=== PATIENT | female | born 1995 | race American Indian/Alaskan Native ===

== ENCOUNTER 2018-05-19 09:29 | Outpatient (CLI) | payer OTHER, MEDICAID ==
[2018-05-19 09:38] VITALS: BP 136/97
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
[2018-05-19] MEDS ORDERED: ZOFRAN IM ONE (11:48)
[2018-05-19] MEDS ORDERED: TYLENOL #3 PO ONE (11:48)
[2018-05-19] MEDS ORDERED: ZOFRAN ODT ONE (11:57)
[2018-05-19] MEDS ORDERED: ZOFRAN ODT PO ONE (12:05)
== END 2018-05-19 14:45 | disposition home or self-care (01) ==
LOC: ED 09:29 → TRG 09:29 → ED 12:11 → LD 12:24 → TRG 12:24 → EDSTATUS 12:26 → TRG 14:45
PROVIDERS: ATTEND Obstetrics & Gynecology
DX: O71.89 Other specified obstetric trauma (principal); Z3A.36 36 weeks gestation of pregnancy
CPT/HCPCS: 59025; J2405; Q0162

== ENCOUNTER 2018-05-20 23:54 | Outpatient (CLI) | payer MEDICAID ==
[2018-05-21] MEDS ORDERED: LACTATED RINGERS 1,000 ML IV ONE (00:11)
[2018-05-21 01:56] VITALS: BP 136/90
--- NOTE | 2018-05-21 02:52 | Ultrasound Report ---
FINAL REPORT PROCEDURE: US OB LIMITED TECHNIQUE: Real-time limited sonographic examination was performed for evaluation of heartbeat and placenta with image documentation. HISTORY: Vaginal bleeding. COMPARISON: No prior studies are available for comparison. FINDINGS: LMP: 09/08/2017. Clinical age: 36 weeks 3 days. CANDIE: 06/15/2018. IUP: Single living intrauterine . Placental position: Fundal grade 2, without previa . Amniotic fluid volume: Normal . Heart rate and rhythm: 138 BPM, Regular . anatomic survey: Normal . Please note biophysical profile given on separate report, score 8/8. IMPRESSION: Fundal grade 2 placenta without sonographic evidence of previa or abruption. Please note biophysical profile given on separate report, score 8/8.
--- NOTE | 2018-05-21 02:52 | Ultrasound Report ---
FINAL REPORT PROCEDURE: US OB BPP WO NON-STRESS TECHNIQUE: Sonographic evaluation for breathing, movement, tone, and amniotic fluid volume was performed. CPT 50430 HISTORY: Vaginal bleeding. COMPARISON: No prior studies are available for comparison. FINDINGS: LMP: 09/08/2017. Clinical age: 36 weeks 3 days. EDC: 06/15/2018. Amniotic fluid volume: Normal-score 2. At least one vertical pocket > 2 cm or more in vertical axis. breathing: Normal-score 2. movement: Normal-score 2. tone: Normal. Score: 8 of 8. heart rate 138 beats per minute. IMPRESSION: Normal biophysical profile.
== END 2018-05-21 02:30 | disposition home or self-care (01) ==
LOC: TRG 23:54
PROVIDERS: ATTEND Obstetrics & Gynecology Gynecology
DX: O47.03 False labor before 37 completed weeks of gestation, third trimester (principal); Z3A.36 36 weeks gestation of pregnancy
CPT/HCPCS: 59025; 76815; 76819